=== PATIENT | female | born 1980 | race Caucasian/White ===

== ENCOUNTER → 2019-05-02 08:28 | Outpatient (BNVA) | payer BC, SELFPAY | PROVIDERS: Family Provider Nurse Practitioner; PCP Family Medicine; Visit Provider Nurse Practitioner | DX: R68.89 Other general symptoms and signs (principal) | CPT/HCPCS: 84443; 85025 ==

== ENCOUNTER → 2019-08-06 16:11 | Outpatient (BNVA) | payer BC, SELFPAY | PROVIDERS: Family Provider Nurse Practitioner; PCP Family Medicine; Visit Provider Nurse Practitioner Family | DX: N92.0 Excessive and frequent menstruation with regular cycle (principal); H10.9 Unspecified conjunctivitis; Z30.011 Encounter for initial prescription of contraceptive pills | CPT/HCPCS: 84443; 85025 ==

== ENCOUNTER 2019-08-24 09:22 | Outpatient (CLI) | payer BC, SELFPAY ==
--- NOTE | 2019-08-24 09:30 | US_ITS ---
NOTE: Report was unsigned for reason: Order was edited. Original Signature date and time was: 08/23/19 @1114 WS: [id number] ULTRASOUND PELVIS TECHNIQUE: Transabdominal and Transvaginal CLINICAL INFORMATION: menorrhagia : No. COMPARISON: None. FINDINGS: Uterus Orientation: Anteverted. Size: 9.10 cm x 6.6 cm x 5.4 cm Masses: None. Cervix: A few incidental nabothian cysts. Endometrium: Markedly thickened Endometrium thickness: 2.6 cm. Adnexa: Normal. Right ovary size: 2.4 cm x 1.6 cm x 1.9 cm. Right ovary volume: 3.9 ccm3 Left ovary size: 2.3 cm x 2.3 cm x 1.2 cm. Left ovary volume: 3.3 ccm3 Free fluid: None. Other findings: None. [facility] US/US pelvic complete* [id number] IMPRESSION: 1. Markedly thickened endometrium measuring 26 mm. Recommend further evaluatio n with hysteroscopy to evaluate for hyperplasia/neoplasia. 2. Both ovaries are normal. 3. No free fluid in the cul-de-sac.
== END 2019-08-24 09:23 | disposition home or self-care (01) ==
LOC: US 09:26
PROVIDERS: Family Provider Nurse Practitioner; PCP Family Medicine; Visit Provider Nurse Practitioner Family
DX: N92.0 Excessive and frequent menstruation with regular cycle (principal)
CPT/HCPCS: 76830; 76856

== ENCOUNTER → 2022-02-24 15:57 | Outpatient (BNVA) | payer SELFPAY | PROVIDERS: Family Provider Nurse Practitioner; PCP Family Medicine; Visit Provider Nurse Practitioner Family | DX: N92.0 Excessive and frequent menstruation with regular cycle (principal); R93.89 Abnormal findings on diagnostic imaging of other specified body structures; Z13.6 Encounter for screening for cardiovascular disorders | CPT/HCPCS: 80053; 80061; 84443; 85025 ==

== ENCOUNTER → 2022-03-31 16:00 | Outpatient (BNVA) | payer OTHER, SELFPAY | PROVIDERS: Family Provider Nurse Practitioner; PCP Family Medicine; Visit Provider Nurse Practitioner Women's Health | DX: Z12.4 Encounter for screening for malignant neoplasm of cervix (principal); N93.9 Abnormal uterine and vaginal bleeding, unspecified | CPT/HCPCS: 87624 ==

== ENCOUNTER → 2022-04-06 13:54 | Outpatient (BNVA) | payer OTHER, SELFPAY | PROVIDERS: Family Provider Nurse Practitioner; PCP Family Medicine; Visit Provider Nurse Practitioner Women's Health | DX: N93.9 Abnormal uterine and vaginal bleeding, unspecified (principal) | CPT/HCPCS: 76830 ==

== ENCOUNTER → 2022-04-14 14:32 | Outpatient (BNVA) | payer OTHER, SELFPAY | PROVIDERS: Family Provider Nurse Practitioner; PCP Family Medicine; Visit Provider Nurse Practitioner Women's Health | DX: N93.9 Abnormal uterine and vaginal bleeding, unspecified (principal) | CPT/HCPCS: 88305 ==